=== PATIENT | male | born 1975 | race Caucasian/White ===

== ENCOUNTER 2018-07-06 11:07 | Day surgery (SDC) | payer BC ==
[2018-07-06] MEDS ORDERED: Lidocaine 1% 0 ML ONE (11:49)
[2018-07-06] MEDS ORDERED: Lidocaine 2% 5 ML SDV ONE (11:50)
[2018-07-06] MEDS ORDERED: Ropivacaine 0.5% 5 MG/ML 30 ML SDV ONE (11:50)
[2018-07-06] MEDS ORDERED: Betamethasone Acetate/Betamethasone Sod Phosphate 30 MG/5 ML MDV ONE (11:51)
[2018-07-06] MEDS ORDERED: Iopamidol 408 MG/ML 50 ML SDV ONE (11:51)
--- NOTE | 2018-07-06 17:46 | OR ---
SURGEON: Itzel Mills D.O. DATE OF PROCEDURE: 07/06/2018 OR STAFF PRESENT: 1. Kristian Ruiz. 2. Rose Mary Borden RN. 3. William Larsen RT. WOUND CLASS: I. PREOPERATIVE DIAGNOSES: 1. Lumbar degenerative disk disease. 2. Lumbar spondylosis. 3. Lumbar radiculopathy. 4. Right lower extremity L5-S1 herniated disk. 5. Right lower extremity L5-S1 radiculopathy. POSTOPERATIVE DIAGNOSES: 1. Lumbar degenerative disk disease. 2. Lumbar spondylosis. 3. Lumbar radiculopathy. 4. Right lower extremity L5-S1 herniated disk. 5. Right lower extremity L5-S1 radiculopathy. PROCEDURES PERFORMED: 1. Right transforaminal epidural steroid injection at S1. 2. Fluoroscopic guidance for needle placement. 3. Local with oral Valium for sedation. SCREENING QUESTIONS: The patient answered "no" to all of the following questions: 1. Are you allergic to iodine, Betadine or latex? 2. Do you have a bleeding disorder? 3. Do you have any joint replacements, heart valve replacements, or a pacemaker? 4. Are you allergic to anti-inflammatories or blood thinners? 5. Do you have any current local or systemic infections? MEDICAL NECESSITY: This is a patient with a history of chronic low back pain and lower extremity radicular pain in the above dermatomal pattern that comes in for the above diagnostic and therapeutic procedure. Pertinent positives and negatives for this suspected disease process along with the diagnostic findings and testing are in the patient's history and physical exam. The most salient feature includes radicular pain in the above dermatomal pattern. The patient had failed attempts at conservative therapy including physical therapy, nonsteroidal anti- inflammatory drugs, and other medications. No contraindications to perform this procedure including medical, no bleeding disorders or infections, no psychological, no antisocial personality disorder or active addiction disorder. There are no work-related issues, and, in general, the patient does not have any history of multiple prior interventions, surgeries or nerve blocks which have failed to return the patient to function. The patient's other symptoms to be treated include numbness, paresthesia, dysesthesia or hypoesthesia referred into the left lower extremity or any weakness in the involved myotome. This procedure is being performed in accordance with national guidelines as written by the [employer] (JOHN). DESCRIPTION OF PROCEDURE: The patient had the procedure thoroughly explained including risks, benefits and alternatives. Consent was signed in my clinic indicating understanding and willingness to proceed. The patient presented to [facility] where the patient was escorted to the dressing room to disrobe and change into a hospital gown. Preoperative vital signs were taken and stable. The patient reported that Valium was taken prior to the procedure. The patient was brought to the procedure room and placed in the prone position on the table. A pillow was placed under the abdomen in order to flatten the lumbar lordosis. The back was prepped with ChloraPrep and sterilely draped. All personnel in the operating room were dressed in appropriate attire including surgical scrubs, head and shoe covers. This was to ensure sterility while in the treatment room. During the time fluoroscopy was in use, all personnel in the operating room wore lead nino with thyroid collars. Sterile technique was used during the procedure. The fluoroscope was placed for the S1 transforaminal epidural steroid injection. There was no sign of infection at the skin site for needle insertion. The skin was anesthetized with 2% lidocaine with a 27 gauge 1-1/2 inch needle. Then a 22 gauge 3-1/2 inch spinal needle, advanced to the S1. Under direct fluoroscopic guidance needle position was verified in three views; AP, oblique and lateral, with 0.2 cubic centimeters increments of Isovue-200 dye. No intravascular flow pattern was observed under live fluoroscopy. Then 12 milligrams of Celestone was slowly injected after negative aspiration of heme, cerebrospinal fluid and no paresthesias were noted. The needle was cleared prior to removal from the skin. No adverse reactions were noted. The patient was brought to the recovery room awake and in good condition by my staff. The patient was monitored and discharge instructions were given after a brief stay in the recovery area. Both oral and written discharge and follow up instructions were given. The patient will follow up in the clinic in 3-4 weeks post procedure to evaluate the efficacy. The patient verbalized understanding including understanding of those signs and symptoms that would require emergency care and knows how to contact the office if there are any problems or questions in the meantime. PREOPERATIVE PAIN: 10. POSTOPERATIVE PAIN: 04/20. FOLLOWUP: Follow up in the Pain Clinic in 3 weeks. FANTA / ARI GE: 07/06/2018 13:07:03 /[id number]
== END 2018-07-06 13:09 ==
LOC: MW.SDS 11:07
PROVIDERS: ATTEND Anesthesiology
DX: M51.16 Intervertebral disc disorders with radiculopathy, lumbar region (principal); M47.26 Other spondylosis with radiculopathy, lumbar region
CPT/HCPCS: 64483; J0702; J2001; J2795; Q9966; 62323

== ENCOUNTER 2019-08-22 20:39 | Emergency (ER) | payer BC, OTHER ==
[2019-08-22] MEDS ORDERED: Aspirin 325 MG Tab PO ONE (20:48)
--- NOTE | 2019-08-22 20:54 | EDM.PDOC ---
ED HPI GENERAL MEDICAL PROBLEM - General Chief Complaint: Cardiovascular Problem Stated Complaint: EMS Time Seen by Provider: 08/22/19 20:47 - History of Present Illness INITIAL COMMENTS - FREE TEXT/NARRATIVE: 43-year-old male with history of very infrequent palpitations presents with 10- second history of palpitation and lightheadedness. During the event, he with his apple watch which showed that his heart rate was in the 140s. After this ( 10 seconds) the symptoms completely resolved. 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 There was some suggestion of ST elevation and concern for STEMI. Patient feels completely at baseline. He has no chest pain, no shortness of breath, no arm or jaw pain, no vision changes, no weakness no numbness. No recent trips or travels. No history of PE or DVT. Patient has no cardiac history. The patient does endorse smoking but denies having high blood pressure, hypercholesterolemia or diabetes. No significant family history of cardiac disease. - Related Data Allergies Allergy/AdvReac Type Severity Reaction Status Date / Time No Known Allergies Allergy Verified 08/22/19 21:01 Home Meds: Home Meds Calcium Carbonate/Vitamin D3 [Calcium 500 mg Chewable Tablet] 1 each PO DAILY 10 Days #10 tab.chew 08/23/19 [Rx] Magnesium Oxide/Magnesium [Magnesium] 300 mg PO BID 10 Days #20 capsule [Rx] Potassium Chloride 20 meq PO BID 10 Days #20 tablet.er 08/23/19 [Rx] Past Medical History HEENT History: Reports: None Cardiovascular History: Reports: None Respiratory History: Reports: None Gastrointestinal History: Reports: None Genitourinary History: Reports: None Musculoskeletal History: Reports: None Neurological History: Reports: None Psychiatric History: Reports: None Endocrine/Metabolic History: Reports: Other (See Below) Other Endocrine/Metabolic History: have blood sugar problem not taking any medication Hematologic History: Reports: None Immunologic History: Reports: None Oncologic (Cancer) History: Reports: None Dermatologic History: Reports: None - Infectious Disease History Infectious Disease History: Reports: None Social & Family History - Family History Family Medical History: Noncontributory - Caffeine Use Caffeine Use: Reports: Energy Drinks ED ROS GENERAL - Review of Systems Review Of Systems: Comprehensive ROS is negative, except as noted in HPI. ED EXAM, GENERAL - Physical Exam Exam: See Below Free Text/Narrative:: General: No acute distress. Comfortable. Heent: Examination revealed no pallor, no icterus, no lymphadenopathy. The patient has normal posterior pharynx, moist mucous membranes. Neck: Supple. No JVD. No rigidity. Heart: Normal rate. Reg rhythm. No murmurs appreciated. Lungs: Bilaterally clear to auscultation. No focal findings. Abdomen: Nontender, non-distended, soft, no CVA tenderness. Neuro: Pt is moving all four extremities. EOMI. PERRL. Normal speech. Skin: Exposed areas appeared normally perfused, warm, normal color with no meaningful rashes or lesions. Extremities: Peripheral examination revealed no pedal edema. Peripheral pulses were 2+. EKG INTERPRETATION EKG Interpretation Comments: EKG time 8:39 PM. Sinus rhythm at 92. Poor R wave progression. QTc 433. Intervals are normal. There is some VT depression in lead II and lead III and lead aVF. Otherwise there were no ST elevation noted in the inferior leads. aVL appears flat after the RS complex. No clear evidence of acute ischemia. Course - Vital Signs Text/Narrative:: Heart score is less than 3 in this patient. His EKG while not completely normal does not suggest acute ischemia. The patient also has no symptoms whatsoever on arrival. Will attempt to find previous EKG for comparison. EKG computer reads ST elevation but I am unable to discern any meaningful ST elevation other than less than 1 mm in V3 but this has a slower J-point. There is also some poor R progression between V1 and V2. Story not at all suggestive of pulmonary embolus in his exam and previous history and risk factors not suggest this diagnosis. And again the patient says he feels fine and only had 10 seconds of symptoms total which essentially amounted to palpitations and a heart rate around 140 according to his apple watch. This patient has numerous lab abnormalities involving electrolytes and also even blood protein. At the patient admitted to hospitalist but the patient then refused admission. Initially thought I could treat him up a little bit to get him home with and is more laboratories came and it became obvious this would be hard to do. Had another long conversation with him asking him to please be admitted because there are plenty of things to work on and some of these concern to be dangerous especially the low calcium and low potassium. The patient again refuses admission. He is aware of the risks of cardiac arrhythmia and arrest and other pathologies. Does not want to stick around for the amount of time it would take to slowly correct all of his abnormal laboratories. Accordingly after 3 to 4 hours in the department, I will go ahead and discharge him with oral medications to try to control some of these abnormalities and he will follow-up with his primary care provider on Tuesday as already scheduled. Again the patient is well aware of the risks and knows he is leaving AGAINST MEDICAL ADVICE. We also discussed the fact that I will have to give him oral medication for all of these abnormalities and that in fa he may be difficult to normalize his laboratories without regular blood work and someone monitoring his blood levels of potassium, magnesium and calcium as an example. He is aware of these risks. Last Recorded V/S: Last Vital Signs Temp 98.2 F 08/22/19 21:01 Pulse 78 08/23/19 00:35 Resp 16 08/22/19 23:28 BP 137/87 08/23/19 00:35 Pulse Ox 98 08/22/19 23:28 - Orders/Labs/Meds Orders: Active Orders 24 hr Category Date Time Status Patient Status [ADT] Stat ADT 08/22/19 21:54 Active EKG 12 Lead [EKG Documentation Completion] [RC] STAT Care 08/22/19 20:47 Active Labs: Laboratory Tests 08/22/19 08/22/19 08/22/19 Range/Units 20:38 20:38 20:38 WBC 7.24 (4.0-11.0) K/uL RBC 3.84 L (4.50-5.90) M/uL Hgb 12.0 L (13.0-17.0) g/dL Hct 36.1 L (38.0-50.0) % MCV 94.0 (80.0-98.0) fL MCH 31.3 (27.0-32.0) pg MCHC 33.2 (31.0-37.0) g/dL RDW Std Deviation 47.0 (28.0-62.0) fl RDW Coeff of Monica 14 (11.0-15.0) % Plt Count 258 (150-400) K/uL MPV 8.70 (7.40-12.00) fL Nucleated RBC % 0.0 /100WBC Nucleated RBCs # 0 K/uL Sodium 144 (136-148) mmol/L Potassium 2.6 L (3.5-5.1) mmol/L Chloride 109 H (98-107) mmol/L Carbon Dioxide 23.6 (21.0-32.0) mmol/L BUN 14 (7.0-18.0) mg/dL Creatinine 0.9 (0.8-1.3) mg/dL Est Cr Clr Drug Dosing 106.92 mL/min Estimated GFR (MDRD) > 60.0 ml/min Glucose 98 (74-106) mg/dL Calcium 6.3 L (8.5-10.1) mg/dL Phosphorus 2.5 L (2.6-4.7) mg/dL Magnesium 1.4 L (1.8-2.4) mg/dL Total Bilirubin 0.3 (0.2-1.0) mg/dL AST 16 (15-37) IU/L ALT 21 (14-63) IU/L Alkaline Phosphatase 33 L (46-116) U/L Troponin I < 0.050 (0.000-0.056) ng/mL Total Protein 5.1 L (6.4-8.2) g/dL Albumin 2.7 L (3.4-5.0) g/dL Globulin 2.4 L (2.6-4.0) g/dL Albumin/Globulin Ratio 1.1 (0.9-1.6) Meds: Medications Discontinued Medications Generic Name Dose Route Start Last Admin Trade Name Freq PRN Reason Stop Dose Admin Aspirin 325 mg 08/22/19 20:48 08/22/19 21:13 Aspirin PO 08/22/19 20:49 Not Given ONETIME ONE Potassium Chloride 20 meq/ 50 mls @ 25 mls/hr 08/22/19 21:49 08/22/19 22:51 Premix IV 08/22/19 23:48 25 mls/hr ONETIME ONE Administration Potassium Chloride 40 meq 08/22/19 21:49 08/22/19 22:19 Klor-Con M20 PO 08/22/19 21:50 40 meq ONETIME ONE Administration Departure - Departure Time of Disposition: 22:05 Disposition: Home, Self-Care 01 Condition: Fair Clinical Impression: Hypokalemia, Palpitations, Hypomagnesemia, Hypocalcemia Prescriptions: Calcium Carbonate/Vitamin D3 [Calcium 500 mg Chewable Tablet] 1 each PO DAILY 10 Days #10 tab.chew Magnesium Oxide/Magnesium [Magnesium] 300 mg PO BID 10 Days #20 capsule Potassium Chloride 20 meq PO BID 10 Days #20 tablet.er Referrals: PCP,None [Primary Care Provider] - Forms: ED Department Discharge Additional Instructions: You have chosen to leave the hospital AGAINST MEDICAL ADVICE. You need to follow-up immediately with your primary care provider for reevaluation. Make sure you take your potassium the recommended medications as directed. You can return to emergency at anytime for further treatment. The following information is given to patients seen in the emergency department who are being discharged to home. This information is to outline your options for follow-up care. We provide all patients seen in our emergency department with a follow-up referral. The need for follow-up, as well as the timing and circumstances, are variable depending upon the specifics of your emergency department visit. If you don't have a primary care physician on staff, we will provide you with a referral. We always advise you to contact your personal physician following an emergency department visit to inform them of the circumstance of the visit and for follow-up with them and/or the need for any referrals to a consulting specialist. The emergency department will also refer you to a specialist when appropriate. This referral assures that you have the opportunity for follow-up care with a specialist. All of these measure are taken in an effort to provide you with optimal care, which includes your follow-up. Under all circumstances we always encourage you to contact your private physician who remains a resource for coordinating your care. When calling for follow-up care, please make the office aware that this follow-up is from your recent emergency room visit. If for any reason you are refused follow-up, please contact the [facility] Emergency Department at and asked to speak to the emergency department charge nurse. Sepsis Event Note - Focused Exam Vital Signs: Vital Signs Temp Pulse Resp BP Pulse Ox 08/23/19 00:35 78 137/87 08/22/19 23:28 73 16 126/87 98 08/22/19 22:21 82 16 151/100 H 98 08/22/19 22:06 83 16 137/96 H 96 08/22/19 21:51 83 130/92 H 96 08/22/19 21:21 91 138/90 96 08/22/19 21:01 98.2 F 93 18 136/90 96 08/22/19 20:39 98.3 F 96 18 145/86 H 96 Date Exam was Performed: 08/23/19 Time Exam was Performed: 00:49 - My Orders Last 24 Hours: My Active Orders 08/22/19 20:47 EKG 12 Lead [EKG Documentation Completion] [RC] STAT 08/22/19 21:54 Patient Status [ADT] Stat - Assessment/Plan Last 24 Hours: My Active Orders 08/22/19 20:47 EKG 12 Lead [EKG Documentation Completion] [RC] STAT 08/22/19 21:54 Patient Status [ADT] Stat
[2019-08-22 21:13] LABS: BLOOD UREA NITROGEN,BUN 14 mg/dL (7.0-18.0); CARBON DIOXIDE,CO2 23.6 mmol/L (21.0-32.0); CHLORIDE,CL 109 mmol/L (98-107); GLUCOSE RANDOM 98 mg/dL (74-106); POTASSIUM,K 2.6 mmol/L (3.5-5.1); SODIUM,NA 144 mmol/L (136-148)
[2019-08-22] MEDS ORDERED: Potassium Chloride 20 MEQ Tab.ER PO ONE (21:49)
[2019-08-22] MEDS ORDERED: Potassium Chloride Riders 20 MEQ in Premix Bag 1 BAG IV ONE (21:49)
[2019-08-23 01:13] VITALS: BP 121/81; PULSE 74
== END 2019-08-23 01:05 | disposition home or self-care (01) ==
LOC: MW.ED 20:39
DX: E87.6 Hypokalemia (principal); E83.42 Hypomagnesemia; E83.51 Hypocalcemia
CPT/HCPCS: 36415; 80053; 83735; 84100; 84484; 85027; 93005; 96365; 96366; 99285; A9270; J3480; 99284